=== PATIENT | female | born 1995 | race Hispanic/Latino ===

== ENCOUNTER 2019-06-25 16:38 | Day surgery (SDC) | payer SELFPAY ==
[2019-06-25] MEDS ORDERED: hydrALAZINE 20 MG/ML VIAL SLOW IVP PRN (17:36)
[2019-06-25 17:45] VITALS: TEMP 98.2; BMI 27.6
--- NOTE | 2019-06-25 18:43 | ULT ---
Exam: Nonstress biophysical profile HISTORY: Decreased movement Comparison none TECHNIQUE: Nonstress biophysical profile was performed FINDINGS: Single intrauterine gestation. Vertex presentation Placenta is to the posterior maternal right. Placenta appears to be grade 3. Limited evaluation of the lower uterine segment due to shadowing heart tones: 128 bpm Amniotic fluid index: 16.7 cm Nonstress biophysical profile: tone 2 breathing 2 movements 2 Amniotic fluid 2 Total score 8 out of 8 IMPRESSION: Nonstress biophysical profile with total score 8 out of 8 Results of study were conveyed to Dr. Wesley who was present at bedside by the sound controller 06/25/2019 at 6:43 PM Code CR Transcribed Date/Time: 06/25/2019 7:12 PM
--- NOTE | 2019-06-28 13:32 | SS ---
DATE OF ADMISSION: 06/25/2019 DATE OF DISCHARGE: 06/25/2019 REGULAR PHYSICIAN: Jaxon Bennett MD EVALUATING PHYSICIAN: Sen Wesley MD CHIEF COMPLAINT: Decreased movement in the office. HISTORY OF PRESENT ILLNESS: Ms. Reynoso is a 23-year-old G2, P1, with an estimated date of confinement of 07/07/2019, who presents after seeing Dr. Bennett's office with complaints of decreased movement. At that time, her NST reported some variability, but no significant accelerations. She was sent here for further evaluation. The patient denies leakage of fluid or vaginal bleeding. Her care has been with Dr. Bennett without complications. PAST OBSTETRICAL HISTORY: Includes one vaginal delivery at term. PAST MEDICAL HISTORY: None. PAST SURGICAL HISTORY: None. CURRENT MEDICATIONS: vitamins. ALLERGIES: NO KNOWN ALLERGIES. SOCIAL HISTORY: Denies tobacco, alcohol, or drug use. FAMILY HISTORY: Unremarkable. REVIEW OF SYSTEMS: Denies nausea, vomiting, fever, chills, ruptured membranes, or vaginal bleeding. PHYSICAL EXAMINATION: VITAL SIGNS: In triage, her vital signs are stable and she is afebrile. GENERAL: She is pleasant and in no acute distress. ABDOMEN: Soft, nontender, and gravid. PELVIC: Examination by the labor nurse shows the cervix to be 2 cm dilated, 60% effaced with a vertex presenting. heart rate tracing is reassuring with spontaneous accelerations. No decelerations were seen. Irregular contractions were noted. Biophysical profile was performed and returns 8/8. Her SALEEM is 16.7. ASSESSMENT: 1. 38-week intrauterine . 2. Reassuring testing tonight in triage. PLAN: The patient will be dismissed to home. She was given precautions and told to feel for her baby's movements in the hour or two after she eats, and should she not notice 10 of those, to call Dr. Bennett. She voiced understanding of her instructions via an hardener helper and was sent home in good condition. Job ID: [id number]
== END 2019-06-25 18:38 | disposition home health service (06) ==
LOC: L&D/OP 16:38
PROVIDERS: ATTEND Family Medicine
DX: O36.8190 Decreased fetal movements, unspecified trimester, not applicable or unspecified (principal); Z3A.00 Weeks of gestation of pregnancy not specified
CPT/HCPCS: 59025; 76819; 99282

== ENCOUNTER 2019-06-27 04:46 | Inpatient (IN) | payer MEDICAID ==
[2019-06-27 05:23] VITALS: BMI 27.4
[2019-06-27] MEDS ORDERED: Lidocaine 1% (PF) 30 ML VIAL SC PRN (06:46)
[2019-06-27] MEDS ORDERED: Promethazine HCl 25 MG/ML VIAL IM PRN ×3 (06:46→12:10)
[2019-06-27] MEDS ORDERED: HYDROcodone/Acetaminophen 5/325 mg Tablet PO PRN ×3 (06:46→12:10)
[2019-06-27] MEDS ORDERED: Misoprostol 200 MCG TAB PR PRN (06:46)
[2019-06-27] MEDS ORDERED: NS / Oxytocin 40 units/1000ml 1,000 ML IV PRN (06:46)
[2019-06-27] MEDS ORDERED: Methylergonovine 0.2 MG/ML VIAL IM PRN (06:46)
[2019-06-27] MEDS ORDERED: Butorphanol Tartrate 1 MG/ML VIAL SLOW IVP PRN (06:46)
[2019-06-27] MEDS ORDERED: Ibuprofen 800 MG TAB PO PRN (06:46)
[2019-06-27] MEDS ORDERED: Carboprost 250 MCG/ML AMP IM PRN (06:46)
[2019-06-27] MEDS ORDERED: Diphenoxylate HCl/Atropine Tablet PO PRN (06:46)
[2019-06-27] MEDS ORDERED: Ondansetron PF 4 MG/2 ML Vial IVP PRN ×3 (06:46→12:10)
[2019-06-27] MEDS ORDERED: hydrALAZINE 20 MG/ML VIAL SLOW IVP PRN ×2 (06:46→12:10)
[2019-06-27] MEDS ORDERED: NS w/ Oxytocin 10 units 500 ML IV SCH ×2 (07:00)
[2019-06-27] MEDS ORDERED: Lactated Ringer's 1,000 ML IV SCH (07:00)
[2019-06-27 08:01] LABS: Hemoglobin 13.4 g/dL (12.0-16.0); Mean Corpuscular HGB CONC 35.6 g/dL (32.0-36.0); Mean Corpuscular Hemoglobin 32.6 pg (27.0-31.0); Mean Corpuscular Volume 91.5 fL (78.0-98.0); Platelet Count 185 thou/uL (130-400); RBC Distribution Width 12.3 % (11.5-14.5); Red Blood Cell (RBC) Count 4.11 mill/uL (4.20-5.40); White Blood Cell (WBC) Count 12.3 thou/uL (4.8-10.8)
[2019-06-27] MEDS ORDERED: Fentanyl 4 mcg/Bup 0.1% Cadd 100 ML ONE (08:10)
[2019-06-27 08:33] LABS: Syphilis Antibody Nonreactive (Nonreactive); Syphilis Antibody Index 0.05 S/CO (<1.00 Non-Reactive)
[2019-06-27 08:34] LABS: HBSAg Index 0.15 S/CO (0-0.99); Hep B Surf Ag Non-Reactive S/CO (NonReactive)
[2019-06-27] MEDS ORDERED: Acetaminophen 325 MG TAB PO PRN (08:35)
[2019-06-27] MEDS ORDERED: Naloxone HCl 0.4 mg/ml Vial IVP PRN ×2 (08:35)
[2019-06-27] MEDS ORDERED: EPHEDRINE 25 MG/5 ML SYRINGE SLOW IVP PRN (08:35)
[2019-06-27] MEDS ORDERED: Lactated Ringer's 500 ML IV PRN (08:35)
[2019-06-27] MEDS ORDERED: diphenhydrAMINE 50 MG/ML VIAL IVP PRN (08:35)
[2019-06-27] MEDS ORDERED: Fentanyl 4 mcg/Bupivacaine 0.1% Cassette 100 ML EPIDURAL SCH (08:45)
[2019-06-27] MEDS ORDERED: Communication Order-Pharmacy FS SCH (08:45)
[2019-06-27] MEDS ORDERED: Lidocaine 1% (PF) 30 ML VIAL ONE (10:15)
[2019-06-27] MEDS ORDERED: NS / Oxytocin 40 units/1000ml 1,000 ML ONE (10:15)
[2019-06-27] MEDS ORDERED: Benzocaine-Menthol 82.5 ML CAN TOP PRN (12:10)
[2019-06-27] MEDS ORDERED: Lanolin Ointment 7 GM TUBE TOP PRN (12:10)
[2019-06-27] MEDS ORDERED: Milk Of Magnesia 30 ML UDCUP PO PRN (12:10)
[2019-06-27] MEDS ORDERED: Adacel (T-DAP) 0.5 ML SYRINGE IM ONE (12:10)
[2019-06-27] MEDS ORDERED: NS / Oxytocin 40 units/1000ml 1,000 ML IV SCH (12:10)
[2019-06-27] MEDS ORDERED: Bisacodyl 10 MG SUPP PR PRN (12:10)
[2019-06-27] MEDS ORDERED: diphenhydrAMINE 25 MG CAP PO PRN (12:10)
[2019-06-27] MEDS: Ibuprofen 800 MG TAB PO SCH ×2 (13:42→21:45)
[2019-06-27] MEDS: Ferrous Sulfate 325 MG TAB PO SCH (17:11)
[2019-06-27] MEDS: Docusate Calcium (SURFAK) 240 MG CAP PO SCH (21:45)
[2019-06-28] MEDS: Ibuprofen 800 MG TAB PO SCH ×2 (05:19→14:15)
[2019-06-28 08:21] VITALS: BP 115/68; TEMP 99.1
[2019-06-28] MEDS: Ferrous Sulfate 325 MG TAB PO SCH ×2 (09:12→17:11)
[2019-06-28] MEDS: Docusate Calcium (SURFAK) 240 MG CAP PO SCH (09:13)
== END 2019-06-28 18:45 | disposition home or self-care (01) | DRG 807 ==
LOC: L&D/OP 04:46 → L&D 10:57 → 3SW 15:56
PROVIDERS: ADMIT Family Medicine; ATTEND Family Medicine
PROC: 10E0XZZ Delivery of Products of Conception, External Approach (ICD-10-PCS; principal; 2019-06-27)
PROC: 0KQM0ZZ Repair Perineum Muscle, Open Approach (ICD-10-PCS; 2019-06-27)
DX: O70.1 Second degree perineal laceration during delivery (principal); Z37.0 Single live birth; Z3A.38 38 weeks gestation of pregnancy
CPT/HCPCS: 36415; 85027; 86780; 86850; 86900; 86901; 87340; J2001; J2590

== ENCOUNTER 2021-09-20 18:34 | Observation (INO) | payer MEDICAID, SELFPAY ==
[~2021-09-20 18:34] MED LIST: GASTROGRAFIN 30 ML BOT ONE; Iopamidol-370 76% 500 ML 1 ML ONE
[2021-09-20 19:11] LABS: #Basophils 0.1 thou/uL (0.0-0.2); #Eosinphils 0.1 thou/uL (0.0-0.7); #Monocytes 0.8 thou/uL (0.11-0.59); #Neutrophils 11.1 thou/uL (1.40-6.50); %Basophils 0.4 % (0.0-1.0); %Eosinophils 0.5 % (0.0-10.0); %Lymphocytes 20.1 % (21.0-51.0); %Monocytes 5.1 % (0.0-10.0); %Neutrophils 73.9 % (42.0-75.0); Hemoglobin 14.6 g/dL (12.0-16.0); Mean Corpuscular HGB CONC 34.4 g/dL (32.0-36.0); Mean Corpuscular Hemoglobin 30.8 pg (27.0-31.0); Mean Corpuscular Volume 89.3 fL (78.0-98.0); Mean Platelet Volume 8.3 fL (7.4-10.4); Platelet Count 250 thou/uL (130-400); Red Blood Cell (RBC) Count 4.74 mill/uL (4.20-5.40)
[2021-09-20 19:34] LABS: ALT (SGPT) 24 U/L (8-55); AST (SGOT) 19 U/L (5-34); Albumin 4.5 g/dL (3.5-5.0); Alkaline Phosphatase 119 U/L (40-110); Anion Gap 13 mmol/L (10-20); BUN (Urea Nitrogen) 11 mg/dL (7.0-18.7); Bilirubin, Total 0.7 mg/dL (0.2-1.2); Calc. Creatinine Clearance 0 mL/min (70-130); Calcium 9.4 mg/dL (7.8-10.44); Carbon Dioxide 25 mmol/L (22-29); Chloride 106 mmol/L (98-107); Estimated GFR 127; Globulin 3.1 g/dL (2.4-3.5); Glucose 112 mg/dL (70-105); Potassium 3.6 mmol/L (3.5-5.1); Protein, Total 7.6 g/dL (6.0-8.3); Sodium 140 mmol/L (136-145)
[2021-09-20] MEDS ORDERED: Ketorolac Tromethamine 30 MG/ML VIAL ONE (20:46)
[2021-09-20 20:58] LABS: Bilirubin Negative (Negative); Blood, Urine Negative (Negative); Clarity Extra Turbid (Clear); Glucose, Urine (Dipstick) Normal (Negative); Ketone, Urine Negative (Negative); Leukocyte Negative Leu/uL (Negative); Nitrite Negative (Negative); Protein, Urine (Dipstick) Negative (Neg-Trace); Urobilinogen Normal mg/dL (Less than 2)
[2021-09-20 20:59] LABS: Pregnancy Test - Urine (BHCG) Negative (Negative); Pregu Control Background? CLEAR/WHITE (CLR/WHITE); Pregu Control Bar Appear? YES (CONTROL BAR)
[2021-09-20 21:08] LABS: BHCG - Serum Negative (NEGATIVE); Pregs Control Background? CLEAR/WHITE (CLR/WHITE); Pregs Control Bar Appear? YES (CONTROL BAR)
[2021-09-20] MEDS ORDERED: Morphine 2 MG/ML VIAL ONE (23:14)
[2021-09-20] MEDS ORDERED: Ondansetron PF 4 MG/2 ML Vial ONE (23:14)
[2021-09-20] MEDS ORDERED: Piperacillin/Tazobactam 4.5 GM VIAL ONE (23:14)
[2021-09-21] MEDS ORDERED: Ondansetron ODT 4 MG TAB SL PRN (02:30)
[2021-09-21] MEDS ORDERED: Ondansetron PF 4 MG/2 ML Vial IVP PRN ×2 (02:30→14:33)
[2021-09-21] MEDS ORDERED: Acetaminophen 325 MG TAB PO PRN (02:30)
[2021-09-21] MEDS ORDERED: Sodium Chloride 0.9% 1,000 ML IV SCH (02:30)
[2021-09-21 02:59] LABS: SARS-CoV-2 NAA Rapid Test Not Detected (NotDetected)
[2021-09-21 03:02] VITALS: BMI 29.0
[2021-09-21] MEDS: Piperacillin/Tazobactam 3.375 GM in Sodium Chloride 0.9% 100 ML IVPB SCH ×3 (08:48→23:17)
[2021-09-21] MEDS ORDERED: Piperacillin/Tazobactam 3.375 GM in Sodium Chloride 0.9% 100 ML IVPB SCH (12:00)
[2021-09-21] MEDS ORDERED: Magnesium 5 GM/10 ML Abboject SYRINGE ONE (13:41)
[2021-09-21] MEDS ORDERED: Bupivacaine/Epinephrine 0.25% 30 ML VIAL ONE (13:41)
[2021-09-21] MEDS ORDERED: fentaNYL Citrate/PF 100 MCG/2 ML SYRINGE ONE (13:47)
[2021-09-21] MEDS ORDERED: PROPOFOL 200 MG/20 ML VIAL ONE (13:53)
[2021-09-21] MEDS ORDERED: Dexamethasone 20 MG/5 ML VIAL ONE (13:53)
[2021-09-21] MEDS ORDERED: Succinylcholine 200 MG/10 ml SYRINGE FS ONE (13:53)
[2021-09-21] MEDS ORDERED: Lidocaine 1% PF 5 ML VIAL ONE (13:53)
[2021-09-21] MEDS ORDERED: Vecuronium 10 MG VIAL ONE (13:53)
[2021-09-21] MEDS ORDERED: Ondansetron PF 4 MG/2 ML Vial ONE (13:53)
[2021-09-21] MEDS ORDERED: Promethazine HCl 25 MG/ML VIAL IVPB PRN (14:23)
[2021-09-21] MEDS ORDERED: Ondansetron HCl/PF 4 MG/2 ML Vial IVP PRN (14:23)
[2021-09-21] MEDS ORDERED: Promethazine HCl 25 MG/ML VIAL IM PRN ×2 (14:23→14:33)
[2021-09-21] MEDS ORDERED: Meperidine HCl/PF 25 MG/ML VIAL SLOW IVP PRN (14:23)
[2021-09-21] MEDS ORDERED: SUGAMMADEX SODIUM 200 MG/2 ML VIAL ONE (14:33)
[2021-09-21] MEDS ORDERED: Dextrose 5% in Water 1,000 ML IV PRN (14:33)
[2021-09-21] MEDS ORDERED: HYDROcodone/Acetaminophen 10/325 mg Tablet PO PRN ×2 (14:33)
[2021-09-21] MEDS ORDERED: Dextrose 50% Abboject 50 ML SYRINGE SLOW IVP PRN (14:33)
[2021-09-21] MEDS ORDERED: Morphine 4 MG/ML VIAL SLOW IVP PRN (14:33)
[2021-09-21] MEDS ORDERED: hydrALAZINE 20 MG/ML VIAL SLOW IVP PRN (14:33)
[2021-09-21] MEDS ORDERED: Morphine 2 MG/ML VIAL SLOW IVP PRN (14:33)
[2021-09-21] MEDS: D5 1/2 NS w/20 mEq KCL 1,000 ML IV SCH ×2 (15:43→23:17)
[2021-09-21] MEDS: Ketorolac Tromethamine 30 MG/ML VIAL IVP SCH ×2 (17:23→23:18)
[2021-09-21] MEDS: Famotidine/PF 20 mg/2ml Vial SLOW IVP SCH (20:15)
[2021-09-21] MEDS: Famotidine 20 MG TAB PO SCH (20:15)
[2021-09-22] MEDS: Ketorolac Tromethamine 30 MG/ML VIAL IVP SCH ×2 (05:38→12:04)
[2021-09-22 06:42] LABS: #Basophils 0.1 thou/uL (0.0-0.2); #Eosinphils 0.2 thou/uL (0.0-0.7); #Lymphocytes 5.1 thou/uL (1.20-3.40); #Monocytes 0.7 thou/uL (0.11-0.59); %Basophils 0.6 % (0.0-1.0); %Lymphocytes 45.8 % (21.0-51.0); %Monocytes 6.6 % (0.0-10.0); Hemoglobin 12.3 g/dL (12.0-16.0); Mean Corpuscular HGB CONC 33.8 g/dL (32.0-36.0); Mean Corpuscular Hemoglobin 30.8 pg (27.0-31.0); Mean Corpuscular Volume 91.2 fL (78.0-98.0); Mean Platelet Volume 8.4 fL (7.4-10.4); Platelet Count 217 thou/uL (130-400); Red Blood Cell (RBC) Count 3.99 mill/uL (4.20-5.40); White Blood Cell (WBC) Count 11.1 thou/uL (4.8-10.8)
[2021-09-22 07:01] LABS: Anion Gap 10 mmol/L (10-20); BUN (Urea Nitrogen) 7 mg/dL (7.0-18.7); Calc. Creatinine Clearance 134 mL/min (70-130); Calcium 8.2 mg/dL (7.8-10.44); Carbon Dioxide 23 mmol/L (22-29); Chloride 110 mmol/L (98-107); Estimated GFR 124; Glucose 106 mg/dL (70-105); Sodium 139 mmol/L (136-145)
[2021-09-22] MEDS: Piperacillin/Tazobactam 3.375 GM in Sodium Chloride 0.9% 100 ML IVPB SCH (08:08)
[2021-09-22] MEDS: Famotidine 20 MG TAB PO SCH (08:10)
[2021-09-22] MEDS: D5 1/2 NS w/20 mEq KCL 1,000 ML IV SCH (08:10)
[2021-09-22] MEDS: Famotidine/PF 20 mg/2ml Vial SLOW IVP SCH (08:11)
[2021-09-22 13:02] VITALS: BP 106/70; TEMP 98
== END 2021-09-22 14:56 | disposition home or self-care (01) ==
LOC: ERS 18:34 → ERHOLD 23:03 → T4-A 09-21 02:47
PROVIDERS: ADMIT Surgery; ATTEND Surgery
PROC: 0DTJ4ZZ Resection of Appendix, Percutaneous Endoscopic Approach (ICD-10-PCS; principal; 2021-09-21)
DX: K35.80 Unspecified acute appendicitis (principal); Z20.822 Contact with and (suspected) exposure to COVID-19
CPT/HCPCS: 36415; 74177; 80048; 80053; 81003; 81025; 84703; 85025; 88304; 96361; 96365; 96366; 96375; 96376; A4649; G0378; J1100; J1885; J2270; J2405; J2543; J2704; J3475; J3480; J3490; J7050; Q9963; Q9967; U0002